=== PATIENT | female | born 1995 | race Caucasian/White ===

== ENCOUNTER 2019-03-18 05:17 | Emergency (ER) | payer MEDICAID, OTHER ==
[~2019-03-18] VITALS: Ht 167.6 cm; Wt 82.6 kg
[~2019-03-18 05:17] MED LIST: ALBU8.5H5 INH; CEFD300C37 PO; PREN1TAB60 PO
--- NOTE | 2019-03-18 05:44 | NUR ---
FIRST CONTACT WITH PT. PT STATES THAT SHE HAS HAD A COLD X 1 WEEK AND HAS BEEN GETTING INCREASINGLY SHORT OF BREATH. PT WITH PMH OF ASTHMA WITH NO INHALER. PT ALSO C/O PRODUCTIVE COUGH X 1 WEEK WELL. DENIES ANY OTHER S/S. BP/SPO2 MONITORS IN PLACE. CALL LIGHT WITHIN REACH. PA AT BEDSIDE TO ASSESS.
[2019-03-18] MEDS ORDERED: ALBUTEROL SULFATE 2.5 MG/3 ML ONE (05:51)
--- NOTE | 2019-03-18 05:52 | NUR ---
PT MEDICATED PER EMAR. PT TOLERATED WELL.
[2019-03-18] MEDS ORDERED: ALBUTEROL SULFATE 2.5 MG/3 ML NPPB ONE (06:00)
--- NOTE | 2019-03-18 06:01 | NUR ---
PT BACK TO ROOM FROM XRAY.
[2019-03-18 06:47] VITALS: BP 106/61
--- NOTE | 2019-03-18 06:52 | NUR ---
REPORT GIVEN TO DUSTIN BACON.
--- NOTE | 2019-03-18 07:00 | NUR ---
Bedside report received from Alka RN. Patient resting comfortably on gurnery Patient asking to go home-updated that provider to produce paperwork shortly minimal to modertate wheezes noted to bilateral bases, pox 93% on RA. Continues to have dry cough every 15-20 min- advised to use rx as ordered (inhaler/tessalon) Reviewed medications and signs and symptom neccesatating return to care. Teach back successful
== END 2019-03-18 07:28 | disposition home or self-care (01) ==
LOC: ED 06:07
DX: J45.31 Mild persistent asthma with (acute) exacerbation (principal); B34.9 Viral infection, unspecified; F17.210 Nicotine dependence, cigarettes, uncomplicated
CPT/HCPCS: 71046; 93005; 94640; 99283; J7512; J7613

== ENCOUNTER 2019-06-28 20:22 | Emergency (ER) | payer MEDICAID, OTHER ==
[~2019-06-28] VITALS: Ht 167.6 cm; Wt 73.3 kg
[2019-06-28] MEDS ORDERED: ONDANSETRON 2MG/ML, 2ML IVPush ONE (21:00)
[2019-06-28] MEDS ORDERED: MORPHINE SULFATE 4 MG/ML, 1ML IVPush PRN (21:00)
--- NOTE | 2019-06-28 21:00 | NUR ---
UP TO VOID. CC UA COLLECTED AND TAKEN TO LAB BY ARLEEN.
[2019-06-28 21:10] LABS: BASOPHILS # (AUTO) 0.01 x10^3/uL (0-0.1); BASOPHILS % (AUTO) 0 % (0-1); EOSINOPHILS # (AUTO) 0.12 x10^3/uL (0-0.4); EOSINOPHILS % (AUTO) 1 % (1-7); LYMPHOCYTES # (AUTO) 0.77 x10^3/uL (1-3.4); LYMPHOCYTES % (AUTO) 6 % (22-44); MD NO; MEAN CORPUSCULAR HGB CONC 31.9 g/dL (32.4-35.8); MEAN CORPUSCULAR VOLUME 78.2 fL (80-100); MEAN PLATELET VOLUME 8.9 fL (7.4-10.4); MONOCYTES # (AUTO) 0.48 x10^3/uL (0.2-0.8); MONOCYTES % (AUTO) 4 % (2-9); NEUTROPHILS # (AUTO) 12.43 x10^3/uL (1.8-6.8); NEUTROPHILS % (AUTO) 90 % (42-75); PLATELET COUNT 350 x10^3/uL (130-400); RED CELL DISTRIBUTION WIDTH 17.2 % (9.6-15.2)
[2019-06-28] MEDS ORDERED: ONDANSETRON 2MG/ML, 2ML ONE (21:12)
[2019-06-28] MEDS ORDERED: MORPHINE SULFATE 4 MG/ML, 1ML ONE (21:13)
[2019-06-28 21:21] LABS: ALANINE AMINOTRANSFERASE 20 U/L (12-78); ALBUMIN 3.9 g/dL (3.4-5.0); ANION GAP 7 mmol/L (5-15); CALCIUM 8.8 mg/dL (8.5-10.1); CHLORIDE 106 mmol/L (98-107); CREATININE 0.81 mg/dL (0.55-1.02)
[2019-06-28 21:26] LABS: ALKALINE PHOSPHATASE 81 U/L (45-117); BILIRUBIN,TOTAL 0.7 mg/dL (0.2-1.0); TOTAL PROTEIN 8.4 g/dL (6.4-8.2)
[2019-06-28 21:39] LABS: AMPHETAMINE SCREEN, URINE Negative (Negative); BARBITURATE SCREEN, URINE Negative (Negative); BENZODIAZEPINE SCREEN, URINE Negative (Negative); CANNABINOID SCREEN, URINE Positive (Negative); COCAINE SCREEN, URINE Negative (Negative); METHADONE SCREEN, URINE Negative (Negative); OPIATE SCREEN, URINE Negative (Negative)
[2019-06-28 21:46] LABS: CULTURE INDICATED? YES; MICROSCOPIC INDICATED
[2019-06-28] MEDS ORDERED: OMNIPAQUE 350 MG/ML, 100ML BOTTLE ONE (22:38)
--- NOTE | 2019-06-28 22:57 | NUR ---
at bedside for recheck.
[2019-06-28 23:04] VITALS: BP 109/77
--- NOTE | 2019-06-28 23:05 | NUR ---
WHEN THE PT WAS WOKE UP SHE REPORTED TO ERP THAT SHE IS STILL IN PAIN.
[2019-07-07] MEDS ORDERED: OXYC-302 PO (09:50)
[2019-07-07] MEDS ORDERED: ONDA4TAB13 PO (09:51)
== END 2019-06-28 23:28 | disposition home or self-care (01) ==
LOC: ED 23:02
DX: N30.00 Acute cystitis without hematuria (principal); J45.909 Unspecified asthma, uncomplicated; F17.200 Nicotine dependence, unspecified, uncomplicated
CPT/HCPCS: 36415; 74177; 80053; 80307; 81001; 83690; 84703; 85025; 87086; 87147; 93005; 96374; 96375; 99284; J2270; J2405; Q9967

== ENCOUNTER 2019-07-06 07:16 | Observation (INO) | payer OTHER ==
[~2019-07-06] VITALS: Ht 167.6 cm; Wt 77.0 kg
[2019-07-07 07:10] VITALS: BP 130/80
== END 2019-07-07 10:30 | disposition home or self-care (01) ==
LOC: ED 09:57 → 4NOR 11:00 → ED 20:52 → 4NOR 20:53 → INTOOBSV 20:53 → UNDOADMOB 20:53 → 4NOR 21:06 → DCLOUNGE 07-07 10:10 → 4NOR 07-07 10:10 → DCLOUNGE 07-07 10:10 → UNDODISOB 07-07 10:30
PROVIDERS: ADMIT Surgery; ATTEND Surgery
DX: K80.00 Calculus of gallbladder with acute cholecystitis without obstruction (principal)
CPT/HCPCS: 36415; 47562; 71045; 76700; 80053; 83690; 84484; 84703; 85025; 88304; 93005; 96361; 96374; 99284; G0378; J0330; J0690; J1100; J1170; J1885; J2250; J2270; J2405; J2704; J2710; J3010; J7120; Q0162

== ENCOUNTER 2020-04-19 12:29 | Emergency (ER) | payer MEDICAID ==
[~2020-04-19] VITALS: Ht 167.6 cm; Wt 68.5 kg
[~2020-04-19 12:29] MED LIST changes: +ONDA4TAB13 PO; +OXYC-302 PO
--- NOTE | 2020-04-19 12:42 | NUR ---
BIB [facility] IN 2 SOFT RESTRAINTS. PT STRUGGLING AGAINST RESTRAINTS. RESPONSIVE TO PAINFUL STIMULI. RESP EVEN & UNLABORED. FECAL MATTER ON LT HAND
--- NOTE | 2020-04-19 12:50 | NUR ---
PT RESISTING ATTEMPTS FOR PATTERN SCRATCHER, EKG AND IV. PULLED EKG TABS OFF. PULLING ARMS AWAY. ROLLING AROUND ON GURNEY. SEIZURE PADS IN PLACE, SIDE RAILS UP X2.
--- NOTE | 2020-04-19 12:54 | NUR ---
LAB AT BS. PT FIGHTING AGAINST LAB DRAW. OVERLOCK OPERATOR UNABLE TO GET ALL OF REQUIRED TUBES FILLED.
[2020-04-19] MEDS ORDERED: LORazepam 2 MG/ML, 1ML IVPush ONE (13:00)
[2020-04-19] MEDS ORDERED: PLEASE ENTER HEIGHT AND WEIGHT MC SCH (13:00)
[2020-04-19] MEDS ORDERED: THIAMINE 100 MG/ML, 2ML IM ONE (13:00)
[2020-04-19] MEDS ORDERED: SODIUM CHLORIDE FLUSH 10ML SYR IVF ONE (13:00)
[2020-04-19] MEDS ORDERED: LORazepam 2 MG/ML, 1ML IM ONE (13:00)
[2020-04-19] MEDS ORDERED: LORazepam 2 MG/ML, 1ML ONE (13:02)
[2020-04-19 13:11] LABS: BASOPHILS % (AUTO) 0 % (0-1); EOSINOPHILS # (AUTO) 0.02 x10^3/uL (0-0.4); EOSINOPHILS % (AUTO) 0 % (1-7); LYMPHOCYTES # (AUTO) 0.78 x10^3/uL (1-3.4); LYMPHOCYTES % (AUTO) 11 % (22-44); MD NO; MEAN CORPUSCULAR HGB CONC 31.7 g/dL (32.4-35.8); MEAN CORPUSCULAR VOLUME 75.8 fL (80-100); MEAN PLATELET VOLUME 8.3 fL (7.4-10.4); MONOCYTES # (AUTO) 0.09 x10^3/uL (0.2-0.8); MONOCYTES % (AUTO) 1 % (2-9); NEUTROPHILS # (AUTO) 6.41 x10^3/uL (1.8-6.8); NEUTROPHILS % (AUTO) 88 % (42-75); PLATELET COUNT 272 x10^3/uL (130-400)
[2020-04-19 13:21] LABS: ALANINE AMINOTRANSFERASE 18 U/L (12-78); ALBUMIN 3.4 g/dL (3.4-5.0); ANION GAP 7 mmol/L (5-15); CALCIUM 8.2 mg/dL (8.5-10.1); CHLORIDE 110 mmol/L (98-107); CREATININE 0.78 mg/dL (0.55-1.02)
[2020-04-19 13:26] LABS: ALKALINE PHOSPHATASE 82 U/L (45-117); BILIRUBIN,TOTAL 0.2 mg/dL (0.2-1.0); TOTAL PROTEIN 7.7 g/dL (6.4-8.2)
--- NOTE | 2020-04-19 13:43 | NUR ---
LATE ENTRY FOR 1234. ATIVAN 1MG IM GIVEN PER VO DR JAMES.
--- NOTE | 2020-04-19 13:52 | NUR ---
IV ESTABLISHED AND STRAIGHT CATH URINE OBTAINED WITH ASSISTANCE OF MULTIPLE STAFF. SEIZURE PADS REMAIN IN PLACE. PT NOW LYING ON SIDE WITH SHEET OVER HEAD
[2020-04-19 14:04] LABS: MICROSCOPIC INDICATED
[2020-04-19 14:19] LABS: AMPHETAMINE SCREEN, URINE Negative (Negative); BARBITURATE SCREEN, URINE Negative (Negative); BENZODIAZEPINE SCREEN, URINE Positive (Negative); CANNABINOID SCREEN, URINE Positive (Negative); COCAINE SCREEN, URINE Positive (Negative); METHADONE SCREEN, URINE Negative (Negative); OPIATE SCREEN, URINE Negative (Negative)
--- NOTE | 2020-04-19 14:42 | NUR ---
PT MAKES EYE CONTACT BUT REMAINS NONVERBAL. CONTINUE TO MONITOR
--- NOTE | 2020-04-19 15:27 | NUR ---
NO CHANGE IN MENTAL STATUS. MD ROSSI. PT MAKES EYE CONTACT BUT DOES NOT TALK. WILL CONTINUE TO MONITOR.
--- NOTE | 2020-04-19 17:28 | NUR ---
MD BUSH-TRACY. PT SLUGGISH AND VERBALIZES WITH PAINFUL STIMULI. WILL CONTINUE TO MONITOR UNTIL PT MORE RESPONSIVE AND ABLE TO AMBULATE.
--- NOTE | 2020-04-19 18:28 | NUR ---
PT WAKING UP ENOUGH TO START MAKING PHONE CALLS TO ARRANGE TO GET HOME.
--- NOTE | 2020-04-19 18:45 | NUR ---
PT'S SISTER IS GOING TO PICK HER UP. PT STATES THAT SHE DOES NOT REMEMBER WHAT HAPPENED TODAY. STATES SHE HAS BEEN DRINKING A LOT THE LAST FEW DAYS
--- NOTE | 2020-04-19 18:51 | NUR ---
REPORT TO ADE BACON
--- NOTE | 2020-04-19 19:11 | NUR ---
PATIENT HAS FOUND RIDE HOME, SISTER WILL COME GET PATIENT. PATIENT ABLE TO ARTICULATE EDUCATION TAUGHT TO HER REGARDING THE EVENTS OF TODAY. ABLE TO AMBULATE WITHOUT COMPLICATIONS, ABLE TO FORM COMPLETE THOUGHTS. PATIENT HAS BEEN CLEARED FOR DISCHARGE. SISTER WILL PICK PATIENT UP FROM ROOM.
[2020-04-19 19:13] VITALS: BP 118/66
--- NOTE | 2020-04-19 19:15 | NUR ---
PATIENT CLEARED FOR DISCHARGE. PATIENT'S SISTER DID PICK PATIENT UP FROM ROOM. VERBALIZED UNDERSTANDING OF DISCHARGE EDUCATION. NO NOTED ACUTE DISTRESS, VITAL SIGNS STABLE. AMBULATORY TO DISCHARGE DESK.
== END 2020-04-19 19:16 | disposition home or self-care (01) ==
LOC: ED 16:43
DX: R56.9 Unspecified convulsions (principal); F10.239 Alcohol dependence with withdrawal, unspecified; F14.10 Cocaine abuse, uncomplicated; F11.10 Opioid abuse, uncomplicated; R94.31 Abnormal electrocardiogram [ECG] [EKG]; J45.909 Unspecified asthma, uncomplicated; Y90.0 Blood alcohol level of less than 20 mg/100 ml
CPT/HCPCS: 36415; 70450; 80053; 80307; 81001; 84703; 85025; 93005; 96372; 99285; J2060